=== PATIENT | male | born 2000 | race Caucasian/White ===

== ENCOUNTER 2021-08-03 02:09 | Emergency (ER) | payer OTHER ==
[2021-08-03 02:36] VITALS: BP 138/80; PULSE 65; TEMP 98.2; BMI 36.0
== END 2021-08-03 03:06 | disposition home or self-care (01) ==
LOC: JER 02:09
DX: H61.21 Impacted cerumen, right ear (principal)
CPT/HCPCS: 99282-25

== ENCOUNTER 2023-07-08 16:26 | Emergency (ER) | payer OTHER ==
[2023-07-08 16:38] VITALS: BP 134/66; PULSE 102; RESP 20; TEMP 98.2; BMI 32.5
== END 2023-07-08 17:15 | disposition home or self-care (01) ==
LOC: JERFT 16:26
DX: S69.91XA Unspecified injury of right wrist, hand and finger(s), initial encounter (principal); M79.641 Pain in right hand; M79.644 Pain in right finger(s); W22.8XXA Striking against or struck by other objects, initial encounter
CPT/HCPCS: 73130-TC-RT-FY; 73610-TC-RT-FY; 99284-25

== ENCOUNTER 2023-12-22 11:05 | Emergency (ER) | payer BC, OTHER ==
[2023-12-22 11:18] VITALS: BP 139/77; PULSE 94; RESP 18; TEMP 98.6; BMI 32.5
== END 2023-12-22 11:48 | disposition home or self-care (01) ==
LOC: FER 11:05
DX: R10.33 Periumbilical pain (principal)
CPT/HCPCS: 99282-25

== ENCOUNTER 2023-12-23 13:31 | Emergency (ER) | payer BC ==
[2023-12-23 13:40] VITALS: BP 145/74; PULSE 92; RESP 19; TEMP 98.1; BMI 32.5
[2023-12-23] MEDS ORDERED: KETOROLAC TROMETHAMINE 30 MG/1 ML VIAL ONE (14:24)
[2023-12-23] MEDS: SODIUM CHLORIDE 0.9% 500 ML INFUS.BAG IV ONE (14:26)
[2023-12-23] MEDS: KETOROLAC TROMETHAMINE 30 MG/1 ML VIAL IVPUSH ONE (14:26)
[2023-12-23 14:38] LABS: BASO % 0.3 % (0-2.0); EOS % 0.6 % (0-4.5); HEMATOCRIT 48.8 % (35.4-49); MCH 30.6 pg (25.7-33.7); MCHC 34.8 g/dl (32.0-35.9); MEAN CELL VOLUME 87.8 fl (80-96); MEAN PLT VOLUME 9.3 fl (7.5-11.1); MONO % 7.8 % (3.8-10.2); NEUT % 71.3 % (42.8-82.8); PLATELET COUNT 155 10^3/uL (134-434); RBC 5.56 M/mm3 (4.00-5.60); RDW 13.3 % (11.9-15.9); WHITE BLOOD COUNT 10.2 K/mm3 (4.0-10.0)
[2023-12-23 14:59] LABS: POTASSIUM 4.2 mmol/L (3.5-5.1)
[2023-12-23 15:00] LABS: CALCIUM 10.1 mg/dL (8.5-10.1)
[2023-12-23 15:01] LABS: BLOOD UREA NITROGEN 11.5 mg/dL (7-18)
[2023-12-23 15:04] LABS: CREATININE 0.8 mg/dL (0.55-1.3)
== END 2023-12-23 17:29 | disposition home or self-care (01) ==
LOC: JER 13:31
PROC: 3E0333Z Introduction of Anti-inflammatory into Peripheral Vein, Percutaneous Approach (ICD-10-PCS; principal; 2023-12-23)
DX: L08.82 Omphalitis not of newborn (principal); R10.33 Periumbilical pain
CPT/HCPCS: 36415; 74177-TC; 80048; 85025; 87070; 87076; 87186; 87205; 99285-25

== ENCOUNTER 2025-01-15 22:21 | Emergency (ER) | payer BC ==
[2025-01-15 22:29] VITALS: BP 157/81; PULSE 103; RESP 18; TEMP 98.6; BMI 35.4
== END 2025-01-16 00:57 | disposition home or self-care (01) ==
LOC: JER 22:21
DX: R10.33 Periumbilical pain (principal)
CPT/HCPCS: 99283-25; 99284-25